=== PATIENT | female | born 1950 ===

== ENCOUNTER 2017-04-15 10:20 | Emergency (ER) | payer MEDICARE, OTHER ==
[2017-04-15 10:34] VITALS: BP 108/69; PULSE 85; RESP 19; TEMP 97.9; O2SAT 97
--- NOTE | 2017-04-15 10:45 | ED PDOC ---
HPI: CCC, URI, Sore Throat Time Seen by Provider: 04/15/17 10:36 Chief Complaint (Nursing): Cough, Cold, Congestion Chief Complaint (Provider): Cough, rhinorrhea x 3 days History Per: Patient History/Exam Limitations: no limitations Onset/Duration Of Symptoms: Days Current Symptoms Are (Timing): Still Present Location Of Pain: None Sick Contacts (Context): None Associated Symptoms: Cough, Myalgias. denies: Fever (99.3 last night ), Chills , Sore Throat, Sputum, Nausea Ear Symptoms: Bilateral: None Additional Complaint(s): Pt states last night when she was coughing a lot she had some chest pain which resolved. Pt states she took albuterol inhaler last night which she was given last time she was sick. Pt states she has also been using flonase. Past Medical History Reviewed: Historical Data, Nursing Documentation, Vital Signs Vital Signs: Last Vital Signs Temp 97.9 F 04/15/17 10:31 Pulse 85 04/15/17 10:31 Resp 19 04/15/17 10:31 BP 108/69 04/15/17 10:31 Pulse Ox 97 04/15/17 10:49 - Medical History PMH: Anxiety - Surgical History Surgical History: Cholecystectomy, Tonsillectomy - Family History Family History: States: Diabetes, Hypertension - Living Arrangements Living Arrangements: With Family - Social History Current smoker - smoking cessation education provided: No Alcohol: None Drugs: Denies - Home Medications Home Medications: Ambulatory Orders Medication Instructions Recorded Aspirin 81 mg PO DAILY 11/20/15 Calcium/[place]-3 Fatty Acids/ 1 cap PO DAILY 11/20/15 [[place] Hydrolyzed White Fish] Albuterol HFA [Ventolin HFA 90 1 puff .ROUTE Q4H PRN 04/15/17 mcg/actuation (8 g)] Azithromycin [Zithromax] 250 mg PO DAILY #6 tab 04/15/17 Guaifenesin/Dextromethorphan 5 ml PO Q6H #150 ml 04/15/17 [Delsym Cough+Chest Cngst Dm Lq] - Allergies Allergies/Adverse Reactions: Allergies Allergy/AdvReac Type Severity Reaction Status Date / Time meperidine HCl [From Demerol] Allergy SWELLING Verified 04/01/16 09:17 Review of Systems ROS Statement: Except As Marked, All Systems Reviewed And Found Negative Constitutional: Positive for: Fever (Tactile ) Respiratory: Positive for: Cough Physical Exam - Reviewed Nursing Documentation Reviewed: Yes Vital Signs Reviewed: Yes - Physical Exam Appears: Positive for: Well, Non-toxic, No Acute Distress Head Exam: Positive for: ATRAUMATIC, NORMAL INSPECTION, NORMOCEPHALIC Skin: Positive for: Normal Color, Warm, DRY Eye Exam: Positive for: Normal appearance ENT: Positive for: Normal ENT Inspection Neck: Positive for: Normal, Painless ROM Cardiovascular/Chest: Positive for: Regular Rate, Rhythm Respiratory: Positive for: Rhonchi (Diffuse ). Negative for: Normal Breath Sounds, Accessory Muscle Use, Respiratory Distress Back: Positive for: Normal Inspection Extremity: Positive for: Normal ROM Neurologic/Psych: Positive for: Alert, Oriented - ECG O2 Sat by Pulse Oximetry: 97 Pulse Ox Interpretation: Normal Disposition - Clinical Impression Clinical Impression: Cough - Patient ED Disposition Is Patient to be Admitted: No Counseled Patient/Family Regarding: Diagnosis, Need For Followup, Rx Given - Disposition Referrals: [facility] [Outside] Disposition: Routine/Home Disposition Time: 10:46 Condition: GOOD Prescriptions: Azithromycin [Zithromax] 250 mg PO DAILY #6 tab Guaifenesin/Dextromethorphan [Delsym Cough+Chest Cngst Dm Lq] 5 ml PO Q6H #150 ml Instructions: Acute Bronchitis (ED) Print Language: SOUTH AFRICAN
== END 2017-04-15 11:33 | disposition home or self-care (01) ==
LOC: H.ER 10:20
DX: R05 Cough (principal)

== ENCOUNTER 2017-05-23 14:15 | Emergency (ER) | payer MEDICARE, OTHER ==
[2017-05-23 14:28] VITALS: BP 119/70; PULSE 78; RESP 18; TEMP 98.2; O2SAT 98
--- NOTE | 2017-05-23 16:20 | ED PDOC ---
HPI: Skin/Bite Injury Time Seen by Provider: 05/23/17 16:04 Chief Complaint (Nursing): Abnormal Skin Integrity Chief Complaint (Provider): Rash History Per: Patient History/Exam Limitations: no limitations Onset/Duration Of Symptoms: Intermittent Episodes (2 weeks ), Persistent Current Symptoms Are (Timing): Still Present Additional Complaint(s): Jackie Garcia is a 67 y/o female presenting to the ER on 05/23/2017 with complaints of an intermittent rash for two weeks. Patient reports she has been using a topical cream for the rash which has not resolves. She reports no changes in her regular diet, detergents, lotions, or hand soap. Past Medical History Reviewed: Historical Data, Nursing Documentation, Vital Signs Vital Signs: Last Vital Signs Temp 98.2 F 05/23/17 14:24 Pulse 78 05/23/17 14:24 Resp 18 05/23/17 14:24 BP 119/70 05/23/17 14:24 Pulse Ox 98 05/23/17 16:20 - Medical History PMH: Anxiety - Surgical History Surgical History: Cholecystectomy, Tonsillectomy - Family History Family History: States: Diabetes, Hypertension - Social History Current smoker - smoking cessation education provided: Yes Alcohol: None Drugs: Denies - Home Medications Home Medications: Ambulatory Orders Medication Instructions Recorded Aspirin 81 mg PO DAILY 11/20/15 Calcium/[place]-3 Fatty Acids/ 1 cap PO DAILY 11/20/15 [Seacure Hydrolyzed White Fish] Albuterol HFA [Ventolin HFA 90 1 puff .ROUTE Q4H PRN 04/15/17 mcg/actuation (8 g)] Azithromycin [Zithromax] 250 mg PO DAILY #6 tab 04/15/17 Guaifenesin/Dextromethorphan 5 ml PO Q6H #150 ml 04/15/17 [Delsym Cough+Chest Cngst Dm Lq] predniSONE [predniSONE Tab] 20 mg PO DAILY #12 tab 05/23/17 - Allergies Allergies/Adverse Reactions: Allergies Allergy/AdvReac Type Severity Reaction Status Date / Time meperidine HCl [From Demerol] Allergy SWELLING Verified 04/01/16 09:17 Review of Systems ROS Statement: Except As Marked, All Systems Reviewed And Found Negative Constitutional: Negative for: Fever Skin: Positive for: Rash Neurological: Negative for: Weakness, Numbness Physical Exam - Reviewed Nursing Documentation Reviewed: Yes Vital Signs Reviewed: Yes - Physical Exam Appears: Positive for: Non-toxic, No Acute Distress Head Exam: Positive for: ATRAUMATIC, NORMOCEPHALIC Skin: Positive for: Rash (Few staggered areas of erythema without blanching ) Eye Exam: Positive for: Normal appearance Neck: Positive for: Normal Cardiovascular/Chest: Positive for: Regular Rate, Rhythm. Negative for: Murmur Respiratory: Positive for: Normal Breath Sounds. Negative for: Wheezing, Respiratory Distress Extremity: Positive for: Normal ROM. Negative for: Deformity, Swelling Neurologic/Psych: Positive for: Alert, Oriented. Negative for: Motor/Sensory Deficits - ECG O2 Sat by Pulse Oximetry: 98 Medical Decision Making Medical Decision Makin:04 Initial Impression- 67 y/o female with rash Pt will be discharged routinely with rx for Prednisone. Condition is stable for discharge. Advised to return if symptoms persists or worsen. Documented by Bimal Shin, acting as a scribe for Shayy Pinto PA-C All medical record entries made by the Scribe were at my direction and personally dictated by me. I have reviewed the chart and agree that the record accurately reflects my personal performance of the history, physical exam, medical decision making, and the department course for this patient. I have also personally directed, reviewed, and agree with the discharge instructions and disposition. Disposition - Clinical Impression Clinical Impression: Rash - Patient ED Disposition Is Patient to be Admitted: No Counseled Patient/Family Regarding: Diagnosis, Need For Followup, Rx Given - Disposition Disposition: Routine/Home Disposition Time: 16:19 Condition: GOOD Prescriptions: predniSONE [predniSONE Tab] 20 mg PO DAILY #12 tab Instructions: Acute Rash (ED)
== END 2017-05-23 17:12 | disposition home or self-care (01) ==
LOC: H.ER 14:15
DX: R21 Rash and other nonspecific skin eruption (principal)

== ENCOUNTER 2017-10-04 18:19 | Emergency (ER) | payer MEDICARE, SELFPAY ==
[2017-10-04 18:20] VITALS: BMI 28.4
[2017-10-04 18:48] VITALS: BP 112/76; PULSE 91; RESP 16; TEMP 97.3; O2SAT 98
--- NOTE | 2017-10-04 19:21 | ED PDOC ---
HPI: Female Pain Time Seen by Provider: 10/04/17 19:10 Chief Complaint (Nursing): Female Genitourinary Chief Complaint (Provider): Female Genitourinary History Per: Patient History/Exam Limitations: no limitations Onset/Duration Of Symptoms: Days (x 1) Current Symptoms Are (Timing): Still Present Additional Complaint(s): Jackie is a 67 year old female with a past medical history of cholecystectomy and kidney stones who presents to the Emergency Department complaining of dysuria. Patient was here 10 days ago (September 28) for Urinary tract infection. Patient was prescribed Macrobid and Pyridium. Patient noted that she finished her course of antibiotics with relief, but the pain has return and has worsen after completing course. Feels blood coming out when wiping. Denies taking medications for pain and hypertension. PMD: [facility] Past Medical History Reviewed: Historical Data, Nursing Documentation, Vital Signs Vital Signs: Last Vital Signs Temp 97.3 F L 10/04/17 18:47 Pulse 91 H 10/04/17 18:47 Resp 16 10/04/17 18:47 BP 112/76 10/04/17 18:47 Pulse Ox 98 10/04/17 18:47 - Medical History PMH: Anxiety, Asthma, Hypercholesterolemia, Kidney Stones - Surgical History Surgical History: Cholecystectomy, Tonsillectomy - Family History Family History: States: Diabetes (Pre), Hypertension - Living Arrangements Living Arrangements: With Family - Social History Current smoker - smoking cessation education provided: No Alcohol: None Drugs: Denies - Home Medications Home Medications: Ambulatory Orders Medication Instructions Recorded Aspirin 81 mg PO DAILY 11/20/15 Calcium/[place]-3 Fatty Acids/ 1 cap PO DAILY 11/20/15 [Seacure Hydrolyzed White Fish] Albuterol HFA [Ventolin HFA 90 1 puff .ROUTE Q4H PRN 04/15/17 mcg/actuation (8 g)] Azithromycin [Zithromax] 250 mg PO DAILY #6 tab 04/15/17 Guaifenesin/Dextromethorphan 5 ml PO Q6H #150 ml 04/15/17 [Delsym Cough+Chest Cngst Dm Lq] predniSONE [predniSONE Tab] 20 mg PO DAILY #12 tab 05/23/17 Nitrofurantoin Macrocrystals 100 mg PO BID #14 cap 11/06/17 [Macrobid] Phenazopyridine [Pyridium] 100 mg PO BID #6 tab 09/24/17 Ciprofloxacin [Cipro] 500 mg PO BID #20 tab 10/04/17 Phenazopyridine HCl [Pyridium] 100 mg PO BID #10 tablet 10/04/17 - Allergies Allergies/Adverse Reactions: Allergies Allergy/AdvReac Type Severity Reaction Status Date / Time meperidine HCl [From Demerol] Allergy SWELLING Verified 09/24/17 12:06 Review of Systems ROS Statement: Except As Marked, All Systems Reviewed And Found Negative Constitutional: Negative for: Fever, Chills, Sweats Gastrointestinal: Positive for: Abdominal Pain Genitourinary Female: Positive for: Dysuria Physical Exam - Reviewed Nursing Documentation Reviewed: Yes Vital Signs Reviewed: Yes - Physical Exam Appears: Positive for: Well, Non-toxic Head Exam: Positive for: ATRAUMATIC, NORMAL INSPECTION, NORMOCEPHALIC Skin: Positive for: Normal Color Eye Exam: Positive for: Normal appearance ENT: Positive for: Normal ENT Inspection Neck: Positive for: Normal Cardiovascular/Chest: Positive for: Regular Rate, Rhythm. Negative for: Gallop Respiratory: Positive for: Normal Breath Sounds. Negative for: Respiratory Distress Gastrointestinal/Abdominal: Positive for: Bowel Sounds, Tenderness (Suprapubic) , Other ((-) CVA tenderness.). Negative for: Normal Exam, Guarding, Rebound Extremity: Negative for: Deformity Neurologic/Psych: Positive for: Alert - Laboratory Results Result Diagrams: 10/04/17 19:34 10/04/17 19:34 - ECG O2 Sat by Pulse Oximetry: 98 (RA) Pulse Ox Interpretation: Normal Medical Decision Making Medical Decision Making: Time: 19:22 Plan: - CT Abdominal and Pelvis without PO OR IV Contrast - CMP - CBC - Pyridium 100 mg PO - Urine Culture - Urinalysis Time: 20:59 CT Abdominal and Pelvis without PO OR IV Contrast FINDINGS: Lower thorax: Heart size is normal. There is a small hiatal hernia. There is atelectasis and scarring at the lung bases. ABDOMEN: Liver: There are small hepatic cysts. Gallbladder and bile ducts: Gallbladder is absent.There is prominence of the common duct. Pancreas: Pancreas is mildly atrophic. Spleen: unremarkable Adrenals: unremarkable Kidneys and ureters: There is a tiny nonobstructing left renal stone. Kidneys and ureters are otherwise unremarkable. Stomach and bowel: Stomach is incompletely distended which accentuates the gastric wall.Bowel rotation is normal. There are mildly distended small bowel loops in the left midabdomen. There are scattered air-fluid levels. There is no obstruction. Ileocecal region is unremarkable. Appendix and terminal ileum are unremarkable.Colon is incompletely distended which limits evaluation. There is scattered diverticulosis Appendix: See stomach and bowel PELVIS: Bladder: Bladder is almost completely empty Reproductive: Uterus and adnexal structures are unremarkable. ABDOMEN and PELVIS: Intraperitoneal space: There is no free air or free fluid. Bones/joints: There is early degenerative change in the lower spine. Soft tissues: There is a tiny fat containing umbilical hernia. Vasculature: There are calcified phleboliths. There are vascular calcifications. Lymph nodes: There is no pathologic adenopathy. IMPRESSION: Tiny nonobstructing left renal stone, no ureteral stones or hydronephrosis; prior cholecystectomy; mild ileus, no obstruction Additional findings as described above. Time: 21:01 - Rocephin IV 1 gm Duplex Upon provider evaluation patient is medically stable, and requires no further treatment in the ED at this time. Patient will be discharge. Counseling was provided and all questions were answered regarding diagnosis and need for follow up with PCP. There is agreement to discharge plan. Return if symptoms persist or worsen. Scribe Attestation: Documented by Alberto Jurado, acting as a scribe for Shayy Pinto PA-C. Provider Scribe Attestation: All medical record entries made by the Scribe were at my direction and personally dictated by me. I have reviewed the chart and agree that the record accurately reflects my personal performance of the history, physical exam, medical decision making, and the department course for this patient. I have also personally directed, reviewed, and agree with the discharge instructions and disposition. Disposition - Clinical Impression Clinical Impression: UTI (urinary tract infection) - Patient ED Disposition Is Patient to be Admitted: No - Disposition Disposition: Routine/Home Disposition Time: 20:23 Condition: STABLE Prescriptions: Ciprofloxacin [Cipro] 500 mg PO BID #20 tab Phenazopyridine HCl [Pyridium] 100 mg PO BID #10 tablet Instructions: Urinary Tract Infection in Women (ED) Forms: [facility] (Kyrgyz)
[2017-10-04 19:48] LABS: HEMATOCRIT 39.4 % (34.0-47.0); MEAN CELL VOLUME 90.8 fl (81.0-99.0); MEAN CORPUSCULAR HEMOGLOBIN 30.8 pg (27.0-31.0); RED CELL DISTRIBUTION WIDTH 13.2 % (11.5-14.5); WHITE BLOOD COUNT 12.2 K/uL (4.8-10.8)
[2017-10-04 20:01] LABS: RBC URINE 136 /hpf (0-3); URINE BACTERIA RARE (<OCC); URINE BILIRUBIN NEGATIVE (NEGATIVE); URINE BLOOD MODERATE (NEGATIVE); URINE COLOR YELLOW (YELLOW); URINE GLUCOSE (UA) NEG (Normal); URINE KETONE NEGATIVE (NEGATIVE); URINE LEUKOCYTE ESTERASE LARGE Leu/uL (Negative); URINE PROTEIN 30 mg/dL (NEGATIVE); URINE UROBILINOGEN 0.2-1.0 mg/dL (0.2-1.0); WBC URINE 154 /hpf (0-5)
[2017-10-04 20:19] LABS: POTASSIUM 4.2 MMOL/L (3.6-5.0)
[2017-10-04 20:22] LABS: ALB/GLOB RATIO 1.3 (1.0-2.1); ALKALINE PHOSPHATASE 57 U/L (38-126); ALT/SGPT 36 U/L (9-52); AST/SGOT 31 U/L (14-36); BILIRUBIN,TOTAL 0.4 mg/dl (0.2-1.3); BLOOD UREA NITROGEN 15 mg/dl (7-17); CALCIUM 9.7 mg/dL (8.4-10.2); CARBON DIOXIDE 27 mmol/L (22-30); CHLORIDE 104 mmol/L (98-107); GFR AFRICAN-AMERICAN > 60; GLUCOSE,RANDOM 145 mg/dL (65-105); SODIUM 140 mmol/l (132-148); TOTAL PROTEIN 7.7 G/DL (6.3-8.2)
--- NOTE | 2017-10-04 21:00 | CT ---
EXAM: CT Abdomen and Pelvis Without Intravenous Contrast EXAM DATE/TIME: 10/04/2017 7:22 PM CLINICAL HISTORY: 67 years old, female; Pain; Abdominal pain; Other: Lower pelvic pain; Prior surgery; Surgery date: 6+ months; Surgery type: Gb removed; Additional info: Hematuria, history of stones TECHNIQUE: Axial computed tomography images of the abdomen and pelvis without intravenous contrast. All CT scans at this facility use one or more dose reduction techniques, viz.: automated exposure control; ma/kV adjustment per patient size (including targeted exams where dose is matched to indication; i.e. head); or iterative reconstruction technique. Coronal and sagittal reformatted images were created and reviewed. COMPARISON: There are no prior studies for comparison. FINDINGS: Lower thorax: Heart size is normal. There is a small hiatal hernia. There is atelectasis and scarring at the lung bases. ABDOMEN: Liver: There are small hepatic cysts. Gallbladder and bile ducts: Gallbladder is absent.There is prominence of the common duct. Pancreas: Pancreas is mildly atrophic. Spleen: unremarkable Adrenals: unremarkable Kidneys and ureters: There is a tiny nonobstructing left renal stone. Kidneys and ureters are otherwise unremarkable. Stomach and bowel: Stomach is incompletely distended which accentuates the gastric wall.Bowel rotation is normal. There are mildly distended small bowel loops in the left midabdomen. There are scattered air-fluid levels. There is no obstruction. Ileocecal region is unremarkable. Appendix and terminal ileum are unremarkable.Colon is incompletely distended which limits evaluation. There is scattered diverticulosis Appendix: See stomach and bowel PELVIS: Bladder: Bladder is almost completely empty Reproductive: Uterus and adnexal structures are unremarkable. ABDOMEN and PELVIS: Intraperitoneal space: There is no free air or free fluid. Bones/joints: There is early degenerative change in the lower spine. Soft tissues: There is a tiny fat containing umbilical hernia. Vasculature: There are calcified phleboliths. There are vascular calcifications. Lymph nodes: There is no pathologic adenopathy. IMPRESSION: Tiny nonobstructing left renal stone, no ureteral stones or hydronephrosis; prior cholecystectomy; mild ileus, no obstruction Additional findings as described above.
[2017-10-04] MEDS ORDERED: cefTRIAXone IV 1 gm in Dextros 50 ML IVPB STA (21:01)
[2017-10-04] MEDS ORDERED: cefTRIAXone IV 1 gm in Dextros 50 ML IVPB ONE (21:21)
== END 2017-10-04 22:52 | disposition home or self-care (01) ==
LOC: H.ER 18:19
DX: N39.0 Urinary tract infection, site not specified (principal); E78.00 Pure hypercholesterolemia, unspecified; F41.9 Anxiety disorder, unspecified; J45.909 Unspecified asthma, uncomplicated; Z79.82 Long term (current) use of aspirin; Z87.442 Personal history of urinary calculi; Z90.49 Acquired absence of other specified parts of digestive tract
CPT/HCPCS: 74176; 80053; 81003; 85027; 87086; 87181; 96365; 99282; J0696

== ENCOUNTER 2018-02-20 13:24 | Emergency (ER) | payer MEDICARE, SELFPAY ==
[2018-02-20 13:25] VITALS: BMI 28.4
[2018-02-20 13:39] VITALS: BP 130/70; PULSE 77; RESP 16; TEMP 98; O2SAT 98
--- NOTE | 2018-02-20 13:44 | ED PDOC ---
HPI: General Adult Time Seen by Provider: 02/20/18 13:43 Chief Complaint (Nursing): Abdominal Pain Chief Complaint (Provider): body aches History Per: Patient Additional Complaint(s): 67-year-old female presents with fever, body aches, cough and sore throat that started 2 days ago. Patient has not been taking any meds for symptoms. She has chest pain only when coughing excessively. Patient denies any shortness of breath or on exertion. She did not measure her temperature but felt feverish. She denies recent travel or known sick contacts. He should also states she was diagnosed with a mass in her lung recently and has an outpatient CAT scan scheduled for next week. PMD: [facility] Past Medical History Reviewed: Historical Data, Nursing Documentation, Vital Signs Vital Signs: Last Vital Signs Temp 98 F 02/20/18 13:36 Pulse 77 02/20/18 13:36 Resp 16 02/20/18 13:36 BP 130/70 02/20/18 13:36 Pulse Ox 98 02/20/18 15:46 - Medical History PMH: Anxiety, Asthma, Diabetes, Hypercholesterolemia - Surgical History Surgical History: Cholecystectomy, Tonsillectomy - Family History Family History: States: Diabetes, Hypertension - Living Arrangements Living Arrangements: With Family - Social History Current smoker - smoking cessation education provided: No Alcohol: None Drugs: Denies - Home Medications Home Medications: Ambulatory Orders Medication Instructions Recorded Aspirin 81 mg PO DAILY 11/20/15 Calcium/[place]-3 Fatty Acids/ 1 cap PO DAILY 11/20/15 [[place] Hydrolyzed White Fish] Albuterol HFA [Ventolin HFA 90 1 puff .ROUTE Q4H PRN 04/15/17 mcg/actuation (8 g)] Azithromycin [Zithromax] 250 mg PO DAILY #6 tab 04/15/17 Guaifenesin/Dextromethorphan 5 ml PO Q6H #150 ml 04/15/17 [Delsym Cough+Chest Cngst Dm Lq] predniSONE [predniSONE Tab] 20 mg PO DAILY #12 tab 05/23/17 Nitrofurantoin Macrocrystals 100 mg PO BID #14 cap 09/24/17 [Macrobid] Phenazopyridine [Pyridium] 100 mg PO BID #6 tab 09/24/17 Ciprofloxacin [Cipro] 500 mg PO BID #20 tab 10/04/17 Phenazopyridine HCl [Pyridium] 100 mg PO BID #10 tablet 10/04/17 Albuterol HFA [Ventolin HFA 90 1 puff IH ASDIR #1 unit 02/20/18 mcg/actuation (8 g)] Azithromycin [Zithromax] 250 mg PO DAILY #6 tab 02/20/18 Benzonatate 200 mg PO TID PRN #20 capsule 02/20/18 Methylprednisolone [Medrol Dose 4 mg PO ASDIR #21 mg 02/20/18 Pack (21 tabs)] - Allergies Allergies/Adverse Reactions: Allergies Allergy/AdvReac Type Severity Reaction Status Date / Time meperidine HCl [From Demerol] Allergy SWELLING Verified 02/20/18 13:36 Review of Systems ROS Statement: Except As Marked, All Systems Reviewed And Found Negative Constitutional: Positive for: Fever (subjective), Chills, Other (body aches) Cardiovascular: Positive for: Chest Pain (due to cough) Respiratory: Positive for: Cough, Sputum (yellow). Negative for: Shortness of Breath, Hemoptysis, SOB with Exertion Gastrointestinal: Negative for: Nausea, Vomiting, Abdominal Pain, Diarrhea Genitourinary Female: Negative for: Dysuria Neurological: Positive for: Headache. Negative for: Dizziness Physical Exam - Reviewed Nursing Documentation Reviewed: Yes Vital Signs Reviewed: Yes - Physical Exam Appears: Positive for: Well, Non-toxic, No Acute Distress Skin: Negative for: Rash Eye Exam: Positive for: Normal appearance ENT: Positive for: Nasal Congestion, Pharyngeal Erythema Cardiovascular/Chest: Positive for: Regular Rate, Rhythm Respiratory: Positive for: Normal Breath Sounds. Negative for: Wheezing, Respiratory Distress Gastrointestinal/Abdominal: Positive for: Soft. Negative for: Tenderness, Distended, Guarding, Rebound Back: Negative for: L CVA Tenderness, R CVA Tenderness Extremity: Positive for: Normal ROM Neurologic/Psych: Positive for: Alert, Oriented - Laboratory Results Result Diagrams: 02/20/18 14:38 02/20/18 14:38 Urine dip results: Positive for: Leukocyte Esterase (small). Negative for: Blood, Nitrate, Ketones, Glucose, Bilirubin, Protein - ECG Interpretation Of ECG: Normal sinus rhythm 69 bpm, no acute findings, reviewed by PA and ED attending. O2 Sat by Pulse Oximetry: 98 Pulse Ox Interpretation: Normal - Other Rad CXR X-Ray: Viewed By Me, Read By Radiologist X-Ray Interpretation: see below Medical Decision Making Medical Decision Makin67 year old with flu like symptoms Plan: PO tylenol and motrin Flu swab Rapid strep CBC CMP Blood cultures Urine dip CXR EKG IVF VBG CXR: IMPRESSION: No consolidative infiltrate. Probable top-normal heart size. Central bronchovascular markings do appear borderline increased. Minimal pulmonary venous congestion is a top normal variant in a patient with probable underlying bullous/ emphysematous changes are a consideration. Please note the prior CT chest report 08/06/2017 regarding a potentially enlarging right lower lobe pulmonary nodule which is not relieved reliably assessed on this chest x- ray. For that I consider follow-up CT chest imaging. Patient is aware of all diagnostic testing results, all questions answered. Patient has CT chest scheduled for next week. Rx given for Medrol Dosepak, Ventolin inhaler, Tessalon Perles and Zithromax. Advised NSAIDs for fever and bodyaches, rest and fluids and follow up with clinic. Disposition - Clinical Impression Clinical Impression: Acute bronchitis - Patient ED Disposition Is Patient to be Admitted: No Counseled Patient/Family Regarding: Studies Performed, Diagnosis, Need For Followup, Rx Given - Disposition Referrals: [facility] [Outside] Disposition: Routine/Home Disposition Time: 16:30 Condition: STABLE Additional Instructions: Take prescription meds as directed. Take [id number] Tylenol and Advil for fever and body aches. Drink plenty of fluids and get plenty of rest. Follow-up with primary doctor in 2-3 days. Prescriptions: Albuterol HFA [Ventolin HFA 90 mcg/actuation (8 g)] 1 puff IH ASDIR #1 unit Azithromycin [Zithromax] 250 mg PO DAILY #6 tab Benzonatate 200 mg PO TID PRN #20 capsule PRN Reason: Cough Methylprednisolone [Medrol Dose Pack (21 tabs)] 4 mg PO ASDIR #21 mg Instructions: Acute Bronchitis Forms: [facility] (Montenegrin) Results - Lab Results Lab Results: 02/20/18 02/20/18 02/20/18 14:38 14:38 14:38 WBC RBC Hgb Hct MCV MCH MCHC RDW Plt Count MPV Neut % (Auto) Lymph % (Auto) [place] % (Auto) Eos % (Auto) Baso % (Auto) Neut # (Auto) Lymph # (Auto) [place] # (Auto) Eos # (Auto) Baso # (Auto) pO2 VBG pH VBG pCO2 VBG HCO3 VBG Total CO2 VBG O2 Sat (Calc) VBG Base Excess VBG Potassium Sodium 141 Chloride 102 Glucose Lactate FiO2 Potassium 3.8 Carbon Dioxide 24 Anion Gap 19 BUN 8 Creatinine 0.6 L Est GFR ( Amer) > 60 Est GFR (Non-Af Amer) > 60 Random Glucose 167 H Calcium 9.0 Total Bilirubin 0.4 AST 22 ALT 20 Alkaline Phosphatase 48 Total Protein 7.4 Albumin 4.0 Globulin 3.5 Albumin/Globulin Ratio 1.1 Venous Blood Potassium Influenza Typ A,B (EIA) Negative for flu a/b Grp A Beta Strep Ag Negative 02/20/18 02/20/18 14:38 14:22 WBC 8.4 RBC 4.24 Hgb 13.2 Hct 38.7 MCV 91.2 MCH 31.0 MCHC 34.0 RDW 13.5 Plt Count 206 MPV 8.1 Neut % (Auto) 75.8 H Lymph % (Auto) 15.8 L [place] % (Auto) 6.8 Eos % (Auto) 1.3 Baso % (Auto) 0.3 Neut # (Auto) 6.4 Lymph # (Auto) 1.3 [place] # (Auto) 0.6 Eos # (Auto) 0.1 Baso # (Auto) 0.0 pO2 51 VBG pH 7.39 VBG pCO2 42 VBG HCO3 24.8 VBG Total CO2 26.7 VBG O2 Sat (Calc) 92.2 H VBG Base Excess 0.3 VBG Potassium 3.6 Sodium 138.0 Chloride 105.0 Glucose 181 H Lactate 1.3 FiO2 21.0 Potassium Carbon Dioxide Anion Gap BUN Creatinine Est GFR ( Amer) Est GFR (Non-Af Amer) Random Glucose Calcium Total Bilirubin AST ALT Alkaline Phosphatase Total Protein Albumin Globulin Albumin/Globulin Ratio Venous Blood Potassium 3.6 Influenza Typ A,B (EIA) Grp A Beta Strep Ag
[2018-02-20] MEDS ORDERED: Sodium Chloride 0.9% 1,000 ML IV STA (14:15)
[2018-02-20 14:31] LABS: VENOUS BLOOD GAS BASE EXCESS 0.3 mmol/L (0.0-2.0); VENOUS BLOOD GAS PCO2 42 mmHg (40-60); VENOUS BLOOD GAS PO2 51 mm/Hg (30-55); VENOUS BLOOD PH 7.39 (7.32-7.43)
[2018-02-20 14:58] LABS: ALB/GLOB RATIO 1.1 (1.0-2.1); ALT/SGPT 20 U/L (9-52); AST/SGOT 22 U/L (14-36); BASO % 0.3 % (0.0-2.0); BLOOD UREA NITROGEN 8 mg/dl (7-17); EOS # 0.1 K/uL (0.0-0.7); EOS % 1.3 % (0.0-4.0); GFR AFRICAN-AMERICAN > 60; GFR NON-AFRICAN AMERICAN > 60; HEMOGLOBIN 13.2 g/dL (12.0-16.0); LYMPH # 1.3 K/uL (1.0-4.3); LYMPH % 15.8 % (20.0-40.0); MEAN CELL VOLUME 91.2 fl (81.0-99.0); MEAN PLATELET VOLUME 8.1 fl (7.2-11.7); MONO # 0.6 K/uL (0.0-0.8); MONO % 6.8 % (0.0-10.0); NEUT # 6.4 K/uL (1.8-7.0); NEUT % 75.8 % (50.0-75.0); RBC 4.24 Mil/uL (3.80-5.20); RED CELL DISTRIBUTION WIDTH 13.5 % (11.5-14.5); WHITE BLOOD COUNT 8.4 K/uL (4.8-10.8)
--- NOTE | 2018-02-20 15:16 | RAD ---
HISTORY: cough COMPARISON: 04/01/2016 FINDINGS: LUNGS: No consolidation. Lung volumes appear slightly increased - central and upper lobe mild cystic emphysematous changes are suspect. The central mostly perihilar but also right lower lobe vascular markings appear top normal some of these also simulate the vessels on end. Please no prior CT chest without contrast report 08/06/2017 referencing possible interval enlarging right lower lobe nodule. This chest x-ray is bleed and not sensitive enough an imaging modality to accurately assess for any interval change. For that, consider follow-up CT chest Trace discoid atelectasis and/or fibrosis left lateral lung base -similar-appearing PLEURA: No significant pleural effusion identified, no pneumothorax apparent. CARDIOVASCULAR: Probable top-normal. OSSEOUS STRUCTURES: Thoracic spondylosis. Bilateral shoulder arthrosis. VISUALIZED UPPER ABDOMEN: Normal. OTHER FINDINGS: None. IMPRESSION: No consolidative infiltrate. Probable top-normal heart size. Central bronchovascular markings do appear borderline increased. Minimal pulmonary venous congestion is a top normal variant in a patient with probable underlying bullous/ emphysematous changes are a consideration. Please note the prior CT chest report 08/06/2017 regarding a potentially enlarging right lower lobe pulmonary nodule which is not relieved reliably assessed on this chest x-ray. For that I consider follow-up CT chest imaging
[2018-02-20 16:22] LABS: RENAL EPITHELIAL < 1 /hpf (0-3); SQUAMOUS EPITHIAL 1 /hpf (0-5); URINE BILIRUBIN NEGATIVE (NEGATIVE); URINE BLOOD SMALL (NEGATIVE); URINE CLARITY SLIGHTY-CLOUDY (Clear); URINE COLOR YELLOW (YELLOW); URINE GLUCOSE (UA) NEG (Normal); URINE LEUKOCYTE ESTERASE SMALL Leu/uL (Negative); URINE PROTEIN NEGATIVE (NEGATIVE); URINE UROBILINOGEN 0.2-1.0 mg/dL (0.2-1.0)
--- NOTE | 2018-02-22 18:23 | CARD ---
APPROVED REPORT EKG Measurement Heart [id number] <Conclusion> Normal sinus rhythm Normal ECG
== END 2018-02-20 16:46 | disposition home or self-care (01) ==
LOC: H.ER 13:24
DX: J20.9 Acute bronchitis, unspecified (principal); J45.909 Unspecified asthma, uncomplicated; Z79.82 Long term (current) use of aspirin; E11.9 Type 2 diabetes mellitus without complications; E78.00 Pure hypercholesterolemia, unspecified; F41.9 Anxiety disorder, unspecified
CPT/HCPCS: 71045; 80053; 81003; 82803; 85025; 87040; 87070; 87086; 87430; 87804; 93005; 96360; 99284; J7040

== ENCOUNTER 2018-11-01 13:41 | Emergency (ER) | payer MEDICARE ==
[2018-11-01 13:41] VITALS: BMI 28.4
[2018-11-01 13:53] VITALS: TEMP 98.4
--- NOTE | 2018-11-01 14:04 | ED PDOC ---
HPI: General Adult Time Seen by Provider: 11/01/18 13:56 Chief Complaint (Nursing): Flu-like Symptoms Chief Complaint (Provider): Flu-like Symptoms History Per: Patient History/Exam Limitations: no limitations Onset/Duration Of Symptoms: Days (x2-3) Current Symptoms Are (Timing): Still Present Additional Complaint(s): 68 year old female with a history of diabetes, hypertension, high cholesterol and a nodule in her lung presents to the ED for evaluation of dry cough that started 2-3 days ago. Her symptoms started with a sore throat that has since resolved, but her cough is worsening. She has been taking Theraflu and Tylenol without relief, last dose was last night. Patient states she has a tactile fever and chest pain when she coughs. She denies any ear pain, current throat pain, recent travel, sick contacts, nausea, vomiting, diarrhea, abdominal pain, calf pain, leg swelling, orthopnea, or any other medical complaints at this time. PMD: Dr. Sada Price Past Medical History Reviewed: Historical Data, Nursing Documentation, Vital Signs Vital Signs: Last Vital Signs Temp 98.4 F 11/01/18 13:44 Pulse 83 11/01/18 13:44 Resp 16 11/01/18 13:44 BP 107/71 11/01/18 13:44 Pulse Ox 97 11/01/18 13:44 - Medical History PMH: Anxiety, Asthma, Diabetes, HTN, Hypercholesterolemia, Kidney Stones, Chronic Kidney Disease Other PMH: nodule in lung, nodule in breast - Surgical History Surgical History: Cholecystectomy, Tonsillectomy Other surgeries: oophorectomy - Family History Family History: States: Diabetes, Hypertension - Social History Current smoker - smoking cessation education provided: No Ex-Smoker (has not smoked in the last 12 months): Yes (quit 7 years ago) - Home Medications Home Medications: Ambulatory Orders Medication Instructions Recorded Calcium/[place]-3 Fatty Acids/ 1 cap PO DAILY 11/20/15 [[place] Hydrolyzed White Fish] RX: Aspirin 81 mg PO DAILY 11/20/15 Albuterol HFA [Ventolin HFA 90 1 puff .ROUTE Q4H PRN 04/15/17 mcg/actuation (8 g)] Guaifenesin/Dextromethorphan 5 ml PO Q6H #150 ml 04/15/17 [Delsym Cough+Chest Cngst Dm Lq] RX: Azithromycin [Zithromax] 250 mg PO DAILY #6 tab 04/15/17 RX: predniSONE [predniSONE Tab] 20 mg PO DAILY #12 tab 05/23/17 Nitrofurantoin Macrocrystals 100 mg PO BID #14 cap 09/24/17 [Macrobid] RX: Phenazopyridine [Pyridium] 100 mg PO BID #6 tab 09/24/17 Ciprofloxacin [Cipro] 500 mg PO BID #20 tab 10/04/17 Phenazopyridine HCl [Pyridium] 100 mg PO BID #10 tablet 10/04/17 Albuterol HFA [Ventolin HFA 90 1 puff IH ASDIR #1 unit 02/20/18 mcg/actuation (8 g)] Azithromycin [Zithromax] 250 mg PO DAILY #6 tab 02/20/18 Methylprednisolone [Medrol Dose 4 mg PO ASDIR #21 mg 02/20/18 Pack (21 tabs)] RX: Benzonatate 200 mg PO TID PRN #20 capsule 02/20/18 Albuterol Sulfate [Ventolin Hfa] 1 puff IH Q4 #1 unit 11/01/18 Benzonatate [Tessalon Perles] 100 mg PO Q8 PRN #21 sgl 11/01/18 RX: Azithromycin [Z-Jhoan] 250 mg PO DAILY #6 tab 11/01/18 - Allergies Allergies/Adverse Reactions: Allergies Allergy/AdvReac Type Severity Reaction Status Date / Time meperidine HCl [From Demerol] Allergy SWELLING Verified 11/01/18 13:43 Review of Systems ROS Statement: Except As Marked, All Systems Reviewed And Found Negative Constitutional: Positive for: Fever (tactile) ENT: Negative for: Ear Pain, Throat Pain Cardiovascular: Positive for: Chest Pain (with cough) Respiratory: Positive for: Cough (dry) Gastrointestinal: Negative for: Nausea, Vomiting, Abdominal Pain, Diarrhea Physical Exam - Reviewed Nursing Documentation Reviewed: Yes Vital Signs Reviewed: Yes - Physical Exam Comments: GENERAL APPEARANCE: Patient is awake, alert, oriented x3; in no acute distress, talking on cell phone. SKIN: Warm, dry; (-) cyanosis; EYES: (-) conjunctival pallor, (-) icterus. ENMT: TMs (-) erythema (-) bulging. Pharynx: clear, uvula midline (-) tonsillar erythema, (-) tonsillar exudate. Airway patent, (-) stridor. Nares: (+) clear rhinorrhea. NECK: Supple, FROM (-) stiffness, (-) lymphadenopathy. CHEST AND RESPIRATORY: (-) retractions, (-) rales, (+) scattered rhonchi, (-) wheezes; respirations nonlabored. Patient speaking in full sentences. HEART AND CARDIOVASCULAR: (-) irregularity ABDOMEN AND GI: Soft; (-) tenderness; (-) distention, (-) guarding EXTREMITIES: (-) deformity (-) calf tenderness (-) pedal edema; distal pulses are present. NEURO AND PSYCH: Mental status as above. Gait: steady. Speech: clear. (-) facial asymmetry (-) aphasia. - ECG ECG Rhythm: Positive for: Normal ST Segment, Sinus Rhythm (normal) Interpretation Of ECG: QTC 410, no ectopy Rate: 75 O2 Sat by Pulse Oximetry: 97 (RA) Pulse Ox Interpretation: Normal Medical Decision Making Medical Decision Making: Time: 1355 Clinical Impression: cough, rule out pneumonia Initial Plan: --CXR --Albuterol 2.5 mg INH --Duoneb 3 ml INH --Robitussin 200 mg PO --Influenza A B --Rapid strep 1530 Rapid Strep: negative Influenza: negative Patient further reports that her next chest imaging (CT) is scheduled for 02/2019. 1540 CXR reviewed, radiology report follows. Date of service: 11/01/2018 HISTORY: cough, chest pain COMPARISON: Chest radiographs 10/02/2018. TECHNIQUE: Chest PA and lateral FINDINGS: LUNGS: No active pulmonary disease. PLEURA: No significant pleural effusion identified. No pneumothorax apparent. CARDIOVASCULAR: Calcific atherosclerotic changes are seen related to the thoracic aorta. Normal cardiac size. No pulmonary vascular congestion. OSSEOUS STRUCTURES: No significant abnormalities. VISUALIZED UPPER ABDOMEN: Normal. OTHER FINDINGS: None. IMPRESSION: No interval acute cardiopulmonary disease appreciated. Azithromycin 500mg ordered for clinical bronchitis. 1625 On re-evaluation, patient reports improvement of symptoms. On exam, patient remains AAOx3, in no acute distress. Lungs clear to auscultation, cardiac RRR, repeat neuro exam shows no focal findings. Vitals stable. Lab/Diagnostic results d/w the patient in great detail. Diagnosis of cough, bronchitis d/w the patient. Based on history, exam and diagnostic results, plan will be for outpatient follow up. Patient instructed to follow-up with pmd / referral provided / the clinic in 1- 2 days without fail. Advised to take medication as prescribed. Return to the emergency room at any time for any new or worsening symptoms. Patient states she fully agrees with and understands discharge instructions. States that she agrees with the plan and disposition. Verbalized and repeated discharge instructions and plan. I have given the patient opportunity to ask any additional questions. Scribe Attestation: Documented by Salima Nava, acting as a scribe for Cat Orlando PA-C. Attestation: All medical record entries made by the Scribe were at my direction and personally dictated by me. I have reviewed the chart and agree that the record accurately reflects my personal performance of the history, physical exam, medical decision making, and the department course for this patient. I have also personally directed, reviewed, and agree with the discharge instructions and disposition. Disposition - Clinical Impression Clinical Impression: Cough in adult, Bronchitis - Patient ED Disposition Is Patient to be Admitted: No Counseled Patient/Family Regarding: Studies Performed, Diagnosis, Need For Followup, Rx Given - Disposition Referrals: Sada Price MD [Family Provider] - Disposition: Routine/Home Disposition Time: 16:20 Condition: STABLE Additional Instructions: The emergency medical care you received today was directed at your acute symptoms. If you were prescribed any medication, please fill it and take as directed. It may take several days for your symptoms to resolve. Return to the Emergency Department if your symptoms worsen, do not improve, or if you have any other problems. Please contact your doctor in 2 days for re-evaluation and follow up / or call one of the physicians/clinics you have been referred to that are listed on the Patient Visit Information form that is included in your discharge packet. Bring any paperwork you were given at discharge with you along with any medications you are taking to your follow up visit. Our treatment cannot replace ongoing medical care by a primary care provider (PCP) outside of the emergency department. Prescriptions: Albuterol Sulfate [Ventolin Hfa] 1 puff IH Q4 #1 unit RX: Azithromycin [Z-Jhoan] 250 mg PO DAILY #6 tab Benzonatate [Tessalon Perles] 100 mg PO Q8 PRN #21 sgl PRN Reason: Cough Instructions: Cough in Adults, Acute Bronchitis, Cough, Runny Nose, and the Common Cold Forms: [email or web address] (Burmese) Print Language: TOGOLESE - POA Present On Arrival: None Results - Lab Results Lab Results: 11/01/18 11/01/18 14:45 14:45 Influenza Typ A,B (EIA) Negative for flu a/b Grp A Beta Strep Ag Negative
[2018-11-01] MEDS ORDERED: Albuterol 0.083% Inhal Sol (2.5 mg/3 mL) UD INH STA (14:06)
[2018-11-01] MEDS ORDERED: Albuterol-Ipratrop 3 mg / 0.5 (3 ml) UD INH STA (14:06)
[2018-11-01] MEDS ORDERED: guaiFENesin 100 mg/5 ml Syrup UD PO ONE (14:15)
[2018-11-01] MEDS ORDERED: Albuterol-Ipratrop 3 mg / 0.5 (3 ml) UD ONE (15:21)
[2018-11-01] MEDS ORDERED: Albuterol 0.083% Inhal Sol (2.5 mg/3 mL) UD ONE (15:30)
[2018-11-01] MEDS ORDERED: guaiFENesin 100 mg/5 ml Syrup UD ONE ×2 (15:30→15:32)
--- NOTE | 2018-11-01 15:56 | RAD ---
Date of service: 11/01/2018 HISTORY: cough, chest pain COMPARISON: Chest radiographs 10/02/2018. TECHNIQUE: Chest PA and lateral FINDINGS: LUNGS: No active pulmonary disease. PLEURA: No significant pleural effusion identified. No pneumothorax apparent. CARDIOVASCULAR: Calcific atherosclerotic changes are seen related to the thoracic aorta. Normal cardiac size. No pulmonary vascular congestion. OSSEOUS STRUCTURES: No significant abnormalities. VISUALIZED UPPER ABDOMEN: Normal. OTHER FINDINGS: None. IMPRESSION: No interval acute cardiopulmonary disease appreciated.
[2018-11-01 16:39] VITALS: RESP 18
[2018-11-01 16:51] VITALS: BP 114/78
[2018-11-02 14:22] VITALS: PULSE 75; O2SAT 97
--- NOTE | 2018-11-02 15:08 | CARD ---
APPROVED REPORT Date of service: 11/01/2018 EKG Measurement Heart [id number] <Conclusion> Normal sinus rhythm Normal ECG
== END 2018-11-01 16:51 | disposition home or self-care (01) ==
LOC: H.ER 13:41
DX: J40 Bronchitis, not specified as acute or chronic (principal); R05 Cough; I12.9 Hypertensive chronic kidney disease with stage 1 through stage 4 chronic kidney disease, or unspecified chronic kidney disease; Z79.899 Other long term (current) drug therapy; E78.00 Pure hypercholesterolemia, unspecified